=== PATIENT | female | born 1965 | race Caucasian/White ===

== ENCOUNTER 2017-05-06 11:46 | Emergency (ER) | payer OTHER ==
[~2017-05-06] VITALS: Ht 160 cm; Wt 58.5 kg
[~2017-05-06 11:46] MED LIST: BUTALB/APAP/CAF1 TAB; FLUOXETINE HYDR20 MG; SEROQUEL400 MG PO
[2017-05-06 13:04] VITALS: BP 98/68
== END 2017-05-06 13:04 | disposition home or self-care (01) ==
LOC: ED 11:46
DX: S91.331A Puncture wound without foreign body, right foot, initial encounter (principal); X58.XXXA Exposure to other specified factors, initial encounter; Y93.89 Activity, other specified; Y99.8 Other external cause status; Y92.89 Other specified places as the place of occurrence of the external cause
CPT/HCPCS: 90715; Q0092

== ENCOUNTER 2017-10-22 08:09 | Emergency (ER) | payer OTHER ==
[~2017-10-22] VITALS: Ht 162.6 cm; Wt 63.0 kg
[2017-10-22 08:21] VITALS: Ht 162.6 cm; Wt 63.0 kg
[2017-10-22 09:39] VITALS: BP 125/84
== END 2017-10-22 09:40 | disposition home or self-care (01) ==
LOC: ED 08:09
DX: M26.603 Bilateral temporomandibular joint disorder, unspecified (principal); F41.9 Anxiety disorder, unspecified; Z86.73 Personal history of transient ischemic attack (TIA), and cerebral infarction without residual deficits
CPT/HCPCS: J1100; J1885

== ENCOUNTER 2018-01-21 09:52 | Emergency (ER) | payer OTHER ==
[~2018-01-21] VITALS: Ht 157.5 cm; Wt 63.2 kg
[2018-01-21 09:57] VITALS: Ht 157.5 cm; Wt 63.2 kg
[2018-01-21 11:49] LABS: CALCIUM 8.8 mg/dL (8.5-10.1); CARBON DIOXIDE 32.8 mmol/L (21-32); CHLORIDE SERUM 105 mmol/L (98-107); CREATININE SERUM 0.7 mg/dL (0.6-1.0); GFR1 > 60 mL/min; GLUCOSE SERUM 95 mg/dL (74-106); POTASSIUM SERUM 4.1 mmol/L (3.5-5.1); SODIUM SERUM 142 mmol/L (136-145)
[2018-01-21 11:53] LABS: ALBUMIN 3.8 g/dL (3.4-5.0); ALKALINE PHOSPHATASE 108 U/L (46-116); ALT/SGPT 27 U/L (14-59); AST/SGOT 23 U/L (15-37); BILIRUBIN TOTAL 0.3 mg/dL (0.20-1.00); TOTAL PROTEIN, SERUM 7.6 g/dL (6.4-8.2)
[2018-01-21 12:12] LABS: BASOPHIL % 0.5 % (0-2); PLATELET COUNT 228 x10^3mcL (130-400); RED CELL DISTRIBUTION WIDTH 13.5 % (11.5-14.5)
[2018-01-21 14:09] VITALS: BP 109/73
== END 2018-01-21 14:09 | disposition home or self-care (01) ==
LOC: ED 09:52
PROVIDERS: Emergency Medicine
DX: R07.89 Other chest pain (principal); Z98.82 Breast implant status
CPT/HCPCS: 83880; J1885; Q0092

== ENCOUNTER 2018-04-08 04:53 | Emergency (ER) | payer OTHER ==
[~2018-04-08] VITALS: Ht 157.5 cm; Wt 64.4 kg
[2018-04-08 05:00] VITALS: BP 123/81; Ht 157.5 cm; Wt 64.4 kg
== END 2018-04-08 05:26 | disposition home or self-care (01) ==
LOC: ED 04:53
DX: Z00.8 Encounter for other general examination (principal); Z86.73 Personal history of transient ischemic attack (TIA), and cerebral infarction without residual deficits; Z98.890 Other specified postprocedural states

== ENCOUNTER 2018-11-18 23:01 | Emergency (ER) | payer OTHER | END 2018-11-18 23:25 | disposition left against medical advice (07) | LOC: ED 23:01 | DX: Z53.21 Procedure and treatment not carried out due to patient leaving prior to being seen by health care provider (principal) ==

== ENCOUNTER 2018-11-22 10:41 | Emergency (ER) | payer OTHER ==
[~2018-11-22] VITALS: Ht 154.9 cm; Wt 60.8 kg
[2018-11-22 10:51] VITALS: Ht 154.9 cm; Wt 60.8 kg
[2018-11-22 15:48] VITALS: BP 110/68
== END 2018-11-22 15:30 | disposition home or self-care (01) ==
LOC: ED 10:41
DX: G89.29 Other chronic pain (principal); N64.4 Mastodynia; Z86.73 Personal history of transient ischemic attack (TIA), and cerebral infarction without residual deficits; N83.209 Unspecified ovarian cyst, unspecified side; Z98.82 Breast implant status
CPT/HCPCS: J1885; J7030; Q9967

== ENCOUNTER 2019-12-09 22:26 | Emergency (ER) | payer OTHER ==
[~2019-12-09] VITALS: Ht 162.6 cm; Wt 65.3 kg
[2019-12-09 22:44] VITALS: BP 135/77; Ht 162.6 cm; Wt 65.3 kg
== END 2019-12-09 23:59 | disposition home or self-care (01) ==
LOC: ED 22:26
DX: S61.252A Open bite of right middle finger without damage to nail, initial encounter (principal); Z86.73 Personal history of transient ischemic attack (TIA), and cerebral infarction without residual deficits; Z98.890 Other specified postprocedural states; W53.11XA Bitten by rat, initial encounter; Y93.89 Activity, other specified; Y92.89 Other specified places as the place of occurrence of the external cause; Y99.8 Other external cause status
CPT/HCPCS: 90715

== ENCOUNTER 2020-02-03 05:59 | Emergency (ER) | payer OTHER ==
[2020-02-03 06:06] VITALS: BP 133/76; Ht 160 cm
[2020-02-03 07:28] LABS: microscopic required? NO
[2020-02-03 07:36] LABS: urine erythrocyte NEGATIVE (NEGATIVE)
== END 2020-02-03 09:48 | disposition home or self-care (01) ==
LOC: ED 05:59
PROVIDERS: Emergency Medicine
DX: R10.819 Abdominal tenderness, unspecified site (principal); R30.0 Dysuria; Z86.73 Personal history of transient ischemic attack (TIA), and cerebral infarction without residual deficits
CPT/HCPCS: J1885; Q0092

== ENCOUNTER 2020-04-14 01:05 | Emergency (ER) | payer OTHER ==
[~2020-04-14] VITALS: Ht 162.6 cm; Wt 59.0 kg
[2020-04-14 01:18] VITALS: Ht 162.6 cm; Wt 59.0 kg
[2020-04-14] MEDS ORDERED: COMPOUND CREAM TOP (01:55)
[2020-04-14 02:43] LABS: BASOPHIL % 0.7 % (0-2); PLATELET COUNT 240 x10^3mcL (130-400); RED CELL DISTRIBUTION WIDTH 12.8 % (11.5-14.5)
[2020-04-14 02:54] LABS: CALCIUM 8.7 mg/dL (8.5-10.1); CARBON DIOXIDE 29.8 mmol/L (21-32); CHLORIDE SERUM 106 mmol/L (98-107); CREATININE SERUM 0.9 mg/dL (0.6-1.0); GFR1 > 60 mL/min; GLUCOSE SERUM 125 mg/dL (74-106); POTASSIUM SERUM 3.4 mmol/L (3.5-5.1); SODIUM SERUM 139 mmol/L (136-145)
[2020-04-14 02:59] LABS: ALBUMIN 3.6 g/dL (3.4-5.0); ALKALINE PHOSPHATASE 104 U/L (46-116); ALT/SGPT 30 U/L (14-59); AST/SGOT 21 U/L (15-37); BILIRUBIN TOTAL 0.2 mg/dL (0.20-1.00); TOTAL PROTEIN, SERUM 7.2 g/dL (6.4-8.2)
[2020-04-14 06:40] VITALS: BP 119/65
== END 2020-04-14 06:40 | disposition home or self-care (01) ==
LOC: ED 01:05
PROVIDERS: Emergency Medicine
DX: R42 Dizziness and giddiness (principal); T42.6X5A Adverse effect of other antiepileptic and sedative-hypnotic drugs, initial encounter; T48.1X5A Adverse effect of skeletal muscle relaxants [neuromuscular blocking agents], initial encounter; Z86.73 Personal history of transient ischemic attack (TIA), and cerebral infarction without residual deficits; Y92.89 Other specified places as the place of occurrence of the external cause
CPT/HCPCS: J2405; J7030; Q0092

== ENCOUNTER 2020-05-21 21:22 | Emergency (ER) | payer BC, OTHER ==
[~2020-05-21 21:22] MED LIST changes: +COMPOUND CREAM TOP
== END 2020-05-21 22:01 | disposition left against medical advice (07) ==
LOC: ED 21:22
DX: Z53.21 Procedure and treatment not carried out due to patient leaving prior to being seen by health care provider (principal)